=== PATIENT | female | born 1950 | race Caucasian/White ===

== ENCOUNTER 2019-11-27 08:53 | Outpatient (CLI) | payer MEDICARE, SELFPAY ==
--- NOTE | ~2019-11-27 | XR_ITS ---
EXAMINATION: XR sacroiliac joints min 3V INDICATION: Right hip pain TECHNIQUE: AP and bilateral oblique views of the sacroiliac joints are obtained. COMPARISON: None available FINDINGS: There is no abnormal sclerosis or erosion of the sacroiliac joints. No fracture is identifi ed. There is moderate right hip osteoarthritis. IMPRESSION: 1. Unremarkable sacroiliac joints. Reviewed, dictated and finalized at location B.
--- NOTE | ~2019-11-27 | XR_ITS ---
EXAMINATION: XR hip RT min 3V w AP pelvis INDICATION: Right hip pain TECHNIQUE: AP view of the pelvis and three views of the right hip are obtained. COMPARISON: None available FINDINGS: There is moderate right and mild left hip osteoarthritis. Bone alignment is normal. There i s no fracture. Phleboliths are noted in the pelvis. IMPRESSION: 1. Moderate right hip osteoarthritis. Reviewed, dictated and finalized at location B.
[2019-11-27 09:37] LABS: Alanine Aminotransferase 20 U/L (4-35); Albumin Level 4.2 g/dL (3.5-5.1); Alkaline Phosphatase 80 U/L (38-126); Anion Gap 9.4 mmol/L (7-16); Aspartate Amino Transferase 25 U/L (14-36); Bilirubin,Total 0.7 mg/dL (0.2-1.3); Blood Urea Nitrogen 15 mg/dL (7-17); Calcium 9.1 mg/dL (8.4-10.2); Carbon Dioxide 29 mmol/L (22-30); Chloride 101 mmol/L (98-107); Cholesterol 239 mg/dL (0-200); Estimated Glomerular Filt Rate > 60; Glucose 98 mg/dL (65-105); HDL Direct 78 mg/dL; Potassium 4.4 mmol/L (3.4-5.0); Sodium 135 mmol/L (137-145); Triglycerides 156 mg/dL (<150)
[2019-11-27 09:48] LABS: LDL Cholesterol Direct 129 mg/dL
== END 2019-11-27 08:54 | disposition home or self-care (01) ==
PROVIDERS: PCP Family Medicine; Visit Provider Family Medicine
DX: E78.2 Mixed hyperlipidemia (principal); M16.11 Unilateral primary osteoarthritis, right hip
CPT/HCPCS: 36415; 72202; 73502; 80053; 80061

== ENCOUNTER 2020-09-18 09:49 | Outpatient (CLI) | payer MEDICARE, SELFPAY ==
[2020-09-18 11:18] LABS: Basophils Absolute Auto 0.1 K/mm3 (0.0-0.1); Basophils Percent Auto 0.7 % (0.2-1.2); Eosinophils Absolute Auto 0.1 K/mm3 (0-0.3); Eosinophils Percent Auto 1.1 % (0-4.4); Hematocrit 43.4 % (37.0-47.0); Hemoglobin 14.6 g/dL (12.0-15.0); Immature Granulocyte Absolute 0.02 K/mm3 (0.00-0.031); Immature Granulocyte Percent A 0.2 % (0-0.5); Lymphocytes Absolute Auto 2.04 K/mm3 (0.9-3.2); Lymphocytes Percent Auto 24.5 % (18.3-44.2); Mean Corpuscular HGB Conc 33.6 g/dl (32-36); Mean Corpuscular Hemoglobin 33.2 pg (26-34); Mean Corpuscular Volume 98.6 fl (80-100); Mean Platelet Volume 9.7 fl (7.4-10.4); Monocytes Absolute Auto 0.7 K/mm3 (0.1-0.6); Monocytes Percent Auto 8.4 % (2.6-8.5); Neutrophils Absolute Auto 5.4 K/mm3 (1.3-6.7); Neutrophils Percent Auto 65.1 % (45.5-73.1); Platelet Count Result 329 k/mm3 (150-375); Red Cell Distribution Width 12.7 % (11.5-14.5); White Blood Count 8.3 K/mm3 (4.5-10.0)
[2020-09-18 11:32] LABS: Albumin Level 4.4 g/dL (3.5-5.1); Anion Gap 7 mmol/L (8-16); Blood Urea Nitrogen 18 mg/dL (7-17); Calcium 9.5 mg/dL (8.4-10.2); Carbon Dioxide 29 mmol/L (22-30); Chloride 101 mmol/L (98-107); Estimated Glomerular Filt Rate > 60; Glucose 95 mg/dL (65-105); Potassium 4.1 mmol/L (3.4-5.0); Sodium 137 mmol/L (137-145)
[2020-09-18 11:35] LABS: Urine Cotinine NEGATIVE
[2020-09-18 20:26] LABS: Hemoglobin A1C 5.1 % (<5.7)
== END 2020-09-18 09:50 | disposition home or self-care (01) ==
LOC: ANHSURGERY 09:53
PROVIDERS: PCP Family Medicine; Visit Provider Orthopaedic Surgery
DX: Z01.812 Encounter for preprocedural laboratory examination (principal); M16.11 Unilateral primary osteoarthritis, right hip; Z51.81 Encounter for therapeutic drug level monitoring; Z79.899 Other long term (current) drug therapy
CPT/HCPCS: 80048; 80307; 82040; 83036; 85025; 87070

== ENCOUNTER → 2020-10-03 02:44 | Outpatient (CLI) | payer MEDICARE, SELFPAY ==
[2020-10-03 18:16] LABS: SARS-CoV-2 RNA PCR Negative
== END ==
PROVIDERS: PCP Family Medicine; Visit Provider Orthopaedic Surgery
DX: Z01.812 Encounter for preprocedural laboratory examination (principal); Z20.822 Contact with and (suspected) exposure to COVID-19
CPT/HCPCS: C9803; U0003; U0005

== ENCOUNTER 2020-10-06 01:35 | Day surgery (SDC) | payer MEDICARE, SELFPAY ==
[2020-09-18 10:06] VITALS: BP 156/74; PULSE 64; RESP 16; TEMP 37.2; O2SAT 100; BMI 27.6
--- NOTE | 2020-10-01 12:13 | PM.IMHP ---
H&P: HPI History of Present Illness Date/Time: 10/01/20 12:13 70-year-old female patient of Dr. Vela who presents today for a right anterior total hip arthroplasty. Patient has been having progressively worsening symptoms in the right hip. She has moderately severe arthritis in the superior aspect of the hip, she has less than a mm joint space remaining. She has tried anti-inflammatories recently, Mobic, which increased her blood pressure and cause some mild ankle swelling and therefore she has stopped this. She has been having pain on a daily basis. She is using a cane on a more regular basis due to pain in the right hip. Most the pain is over the medial groin and anterior lateral aspect of the hip. Chief Complaint: righthip DJD Review of Systems Review of Systems: All systems reviewed & are unremarkable except as noted in HPI and below PMFSH Past Medical History Medical History Abnormal heart rhythm Age-related osteoporosis without current pathological fracture Arthritis Degenerative joint disease of right hip Dizziness Ex-smoker FH: heart disease H/O: gout Hypertension Pain of right hip Psoriasis Right knee pain Seasonal allergies Skin cancer TIA (transient ischemic attack) Trochanteric bursitis, right hip Vision abnormalities Vitamin D deficiency Family History Family History Mother Patient's mother is Father Patient's father is Other Arthritis Hypertension Social History Social History Smoking packs per day: 1.25 Smoking cigarettes per day: 25.0 Years smoked: 50 Smoking pack-years: 62.50 Smoking status: Former smoker Tobacco type: cigarettes Second hand tobacco smoke exposure: No Smoking end date: 06/26/20 Alcohol intake: current Drinks per week: 18 Substance use: never Additional living arrangements comments: HUSB Spiritual care concerns: No Meds Home Medications and Allergies Home Medications Medication Instructions Recorded Confirmed Type aspirin 81 mg tablet,delayed 81 mg PO DAILY 01/14/20 09/18/20 History release naproxen sodium 220 mg capsule 220 mg PO BID PRN 01/14/20 09/18/20 History metoprolol succinate 25 mg PO HS 09/18/20 09/18/20 History triamcinolone acetonide 1 applic TOPICAL BID PRN 09/18/20 09/18/20 History Allergies Allergy/AdvReac Type Severity Reaction Status Date / Time codeine Allergy Unknown Unknown Verified 09/18/20 10:01 Exam Narrative: Exam Narrative: 70-year-old female alert pleasant. She walks with a cane. And mild limp. She is 5 ft 3 and 156 lb. When she lies supine she has about a 25 degree flexion contracture of the right hip and feels pain in the anterior lateral aspect of the hip which is severe. She is able to flex the hip to 110 with anterior thigh pain. She does not tolerate internal and external rotation of the hip due to severe pain. Stinchfield maneuver causes severe pain anterior thigh. skin is all normal in the groin and anterior lateral hip. She has normal abduction strength in lateral position. Moderate tenderness to palpation of the greater trochanter. 2+ dorsalis pedis and absent posterior tibial artery pulse. Normal sensation in the right lower extremity. Normal strength in all muscle groups of the lower extremity. Resp: Auscultation: clear to auscultation bilaterally Cardio: Rate: regular rate Rhythm: regular rhythm Assessment and Plan Additional Plan 70-year-old female who has moderately severe arthritis in her right hip with rather severe symptoms. Patient is having symptoms on a daily basis which are affecting her daily life. The option of total hip arthroplasty was discussed and patient would like to proceed with that. Surgical procedures well as the risks and complications were discussed
[2020-10-06] VITALS (16 sets, daily range): BP systolic 96–177; BP diastolic 47–73; PULSE 52–69; RESP 10–21; TEMP 35.9–36.5; O2SAT 96–100
--- NOTE | ~2020-10-06 | XR_ITS ---
EXAMINATION: XR hip RT 1V w AP pelvis DATE: 10/06/2020 11:58 INDICATION: Right total hip arthroplasty TECHNIQUE: 2 views right hip FINDINGS: There is a right total hip arthroplasty in expected position. Subcutaneous gas with soft t issue swelling are consistent with recent surgery. There is mild osteoarthritis of the left hip. IMPRESSION: 1. Recent right total hip arthroplasty. Reviewed, dictated and finalized at location B.
--- NOTE | ~2020-10-06 | XR_ITS ---
EXAMINATION: XR surgery orthopedic EXAM DATE: 10/06/2020 11:33 INDICATION: Right hip replacement. TECHNIQUE: Fluoroscopy used during XR surgery orthopedic performed by Dr. Richie Hayes MD. Radi ologist was not present for the imaging or procedure. Total fluoroscopic time of 44 seconds. The DA P for this procedure was 0.2 mGym2. A total of 2 images sent to PACS from the exam. FINDINGS: Frontal image demonstrates right hip arthroplasty hardware in expected position. Correlat e with procedure note. IMPRESSION: Fluoroscopy used during right hip replacement. Reviewed, dictated and finalized at location A.
[2020-10-06] MEDS: ACETAMINOPHEN 500 MG TABLET 1000 MG PO ×3 (06:18→23:52)
[2020-10-06] MEDS: LACTATED RINGERS 1,000 ML 30 ML IV CONT ×2 (06:25→12:01)
--- NOTE | 2020-10-06 07:45 | WPDANESEPPF ---
Anes - Initial Pre Proc Eval Procedure: Operation Date: 10/06/20 07:30 Proposed Procedures p Right Total Hip Arthroplasty Anterior Approach - Richie Hayes MD Date/Time: 10/06/20 07:45 Surgeon: Richie Hayes MD Pre Op Diagnosis: osteoarthritis right hip Patient Data Age: 70 Gender: F Height: 5 ft 4 in Weight: 73 kg Last Vital Signs Temp 99.0 F 09/18/20 10:06 Pulse 64 09/18/20 10:06 Resp 16 09/18/20 10:06 BP 156/74 H 09/18/20 10:06 Pulse Ox 100 09/18/20 10:06 Allergies Allergy/AdvReac Type Severity Reaction Status Date / Time codeine AdvReac Unknown AGITATION/GENERAL Verified 10/06/20 06:05 ITCHING Home Medications Medication Instructions Recorded Confirmed Type aspirin 81 mg tablet,delayed 81 mg PO DAILY 01/14/20 10/06/20 History release metoprolol succinate 25 mg PO HS 09/18/20 10/06/20 History triamcinolone acetonide 1 applic TOPICAL BID PRN 09/18/20 10/06/20 History Patient hx anesthesia problems: none Family hx anesthesia problems: none PMFSH Past Medical History Medical History (Updated 10/06/20 @ 07:47 by Nam Thao MD) Abnormal heart rhythm h/o ST; takes Metoprolol Age-related osteoporosis without current pathological fracture Arthritis Degenerative joint disease of right hip Dizziness Ex-smoker FH: heart disease H/O: gout Hypertension Pain of right hip Psoriasis Right knee pain Seasonal allergies Skin cancer TIA (transient ischemic attack) had left sided numbness, last a short period; 3 years ago; none since then; Trochanteric bursitis, right hip Vision abnormalities Vitamin D deficiency Family History Family History Mother Patient's mother is Father Patient's father is Other Arthritis Hypertension Social History Social History Smoking packs per day: 1.25 Smoking cigarettes per day: 25.0 Years smoked: 50 Smoking pack-years: 62.50 Smoking status: Former smoker Tobacco type: cigarettes Second hand tobacco smoke exposure: No Alcohol intake: current Drinks per week: 18 Substance use: never Living arrangements: with family Additional living arrangements comments: HUSB Spiritual care concerns: No Anes - Eval Final PreProcedure Day of Procedure 10/06/20 07:45 Patient weight: overweight Heart: regular rate and rhythm Lungs: clear to auscultation Airway: Mallampati scale class III Neurological: alert and oriented Last oral intake: >/= 8 hours ASA classification: III Emergent: no Anesthetic plan: proceed Anesthesia type and monitoring: general ETT and standard monitoring Informed Consent: The patient's anesthetic plan and its attendant risks and benefits were discussed with the patient/family/POA. Questions were solicited and answers provided to the satisfaction of the patient/family/POA.
--- NOTE | 2020-10-06 07:57 | SUR.PREOP ---
0710-PT INFORMED BY JHON BRADSHAW RN OF DELAY, POSSIBLE CANCELLATION R/T EQUIPMENT ISSUE. 0745-PT AWARE SURGERY WILL PROCEED IN APPROXIMATELY 30-45 MINUTES.
--- NOTE | 2020-10-06 08:01 | WPDHPUPDATE1 ---
History and Physical Update Update Date/Time: 10/06/20 08:01 History and Physical has been reviewed, including an updated exam of the patient. There are NO changes in the patient's condition. Risks, benefits, and alternatives have been discussed and questions answered. Patient agrees to proceed with procedure.
[2020-10-06] MEDS: ceFAZolin 2 GM/D5W 50 ML 2 GM/50 ML BAG IVPB (08:31)
[2020-10-06] MEDS: ceFAZolin SODIUM 1 GM VIAL 3 GM IRRIGATION (09:43)
[2020-10-06] MEDS: ceFAZolin SODIUM 1 GM VIAL IV PUSH (11:22)
[2020-10-06] MEDS: TRANEXAMIC ACID 1,000 MG/10 ML AMPUL 1000 MG IV PUSH (11:24)
[2020-10-06] MEDS: KETOROLAC 15 MG/ML VIAL (*BKC) IV PUSH (11:29)
--- NOTE | 2020-10-06 11:49 | W.PM.PROC2 ---
Procedure Note - Detailed Date of Procedure 10/06/20 Pre-op Diagnosis osteoarthritis right hip Post-op Diagnosis same Procedure Performed Direct anterior approach right hip arthroplasty Surgeon Richie Hayes MD [facility] Anesthesia general Description of Procedure Patient was brought to the operating room and general anesthesia was administered. She was transferred to the OSI table. We had a little bit of a delay switching out the anesthesia machine for the machine with a perfectly function ventilator component. The feet were padded placed in the boots. Right hip prepped draped usual fashion. She received 2 g of Ancef weight based vancomycin and 1 g of tranexamic acid preoperatively. A 10 cm longitudinal incision was made starting 3 cm lateral to the ASIS. Dissection was carried down to the surface of the fascia covering the tensor fascia aron which was longitudinally incised elevated off the anterior 1/2 of the TFL muscle. The interval between rectus femoris and TFL was developed. Crossing branches of ascending branches of lateral femoral circumflex vessels were ligated with suture and divided. Ileal capsular is elevated off anterior capsule and the hip abducted internally rotated and the gluteus minimus elevated off the lateral capsule. Capsule was incised in the usual fashion. Femoral neck osteotomy was made and head removed without difficulty. It measured 46 mm in diameter. There is arthritic. Acetabulum was exposed labrum excised. The femur was externally rotated extended and the lateral tongue of lateral capsular flap excised. Interval between piriformis tendon and conjoined tendon was vertically incised which allowed the conjoined tendon to partially recess which gave enough mobility for anterior is a ramon in this position. With the leg back to the horizontal position external rotation and traction acetabulum was exposed. We medialized with a 44 Reamer. With the 47 Reamer there is still a periphery of on reamed rim the 48 Reamer smoothed the prominence on the rim. As her cancellous bone was a little bit soft we medialized a little further with the 47 Reamer to the floor of the fovea. We then impacted the 48 pinnacle acetabular shell at 40? of abduction anteversion such that the anterior shell was just under the anterior wall and posterior shell about 4 mm prominent posterior superiorly. Excellent it was achieved. We could see that we are about a mm up centrally but the impaction was quite solid and no further impaction could be achieved. A single screw was placed into the ilium which achieved excellent purchase as well. The 32 inner diameter liner was fully seated without difficulty. Inferior acetabular osteophyte was excised. The femur was externally rotated and extended and we had excellent access to proximal femur. We broached up to a size 3 which started getting very tight. It had no torsional wiggle. We countersunk the broach further to what we thought was the appropriate height and trialed. With the standard neck and +5 head, the hip was just a little bit tight. The broach was countersunk another 2 mm and calcar planed and we trialed with the +5 and this gave us the appropriate soft tissue tension with excellent stability but adequate Shuck. Intraoperative x-rays showed that we had matched our preoperative templating plan. Leg lengths looked equal. The size 3 standard neck Actis stem was fully seated without difficulty with an excellent press fit. It sat on the collar nicely. The +5 x 32 ceramic head was impacted onto the clean and dried trunnion. The wound was thoroughly irrigated again with antibiotic solution and the hip reduced stability reconfirmed and. Anterior capsular flap was allowed to rest anterior in situ. The fascia over the tensor fascia aron was closed with running number 1 Vicryl suture. Drain placed deep to the subcutaneous layer skin closed to subcu take any is Vicryl in glue EBL 200 cc. There was
[2020-10-06] MEDS: fentaNYL CITRATE INJ (*CRX) 100 MCG/2 ML VIAL 25 MCG IV PUSH ×4 (12:23→13:00)
--- NOTE | 2020-10-06 12:45 | SUR.PHASEI ---
O2 removed at 1245.
--- NOTE | 2020-10-06 13:50 | PC.NURSE ---
Returned from OR per bed. Report received from CHRISTIANA Dias.
[2020-10-06 14:35] LABS: Hematocrit 38.8 % (37.0-47.0); Hemoglobin 12.9 g/dL (12.0-15.0)
[2020-10-06] MEDS: oxyCODONE HCL (*CRX) 2.5 MG TAB IR PO ×3 (14:48→23:03)
--- NOTE | 2020-10-06 15:19 | PCPTNOTE ---
Attempted PT x 2. Pt refused due to being to tired and having pain. Will try again tomorrow.
[2020-10-06] MEDS: ONDANSETRON INJ 4 MG/2 ML VIAL IV PUSH (15:52)
[2020-10-06] MEDS: DEXTROSE 5%/0.9% SOD CHL 1,000 ML 125 ML IV CONT (16:42)
[2020-10-06] MEDS: SENNA/DOCUSATE SODIUM TABLET 2 TAB PO (16:47)
[2020-10-06] MEDS: FAMOTIDINE 20 MG TABLET PO (20:39)
[2020-10-06] MEDS: METOPROLOL SUCCINATE EXT REL 25 MG TABCR PO (20:39)
[2020-10-07] MEDS: oxyCODONE HCL (*CRX) 2.5 MG TAB IR PO ×3 (03:05→10:34)
[2020-10-07 03:29] VITALS: BP 109/77; PULSE 63; RESP 21; TEMP 36.1; O2SAT 100
[2020-10-07] MEDS: DEXTROSE 5%/0.9% SOD CHL 1,000 ML 125 ML IV CONT (04:33)
[2020-10-07 05:38] LABS: Basophils Percent Auto 0.2 % (0.2-1.2); Hematocrit 34.1 % (37.0-47.0); Hemoglobin 11.1 g/dL (12.0-15.0); Immature Granulocyte Absolute 0.05 K/mm3 (0.00-0.031); Immature Granulocyte Percent A 0.4 % (0-0.5); Lymphocytes Absolute Auto 0.85 K/mm3 (0.9-3.2); Mean Corpuscular HGB Conc 32.6 g/dl (32-36); Mean Corpuscular Hemoglobin 33.3 pg (26-34); Mean Corpuscular Volume 102.4 fl (80-100); Mean Platelet Volume 10.1 fl (7.4-10.4); Monocytes Absolute Auto 1.2 K/mm3 (0.1-0.6); Neutrophils Absolute Auto 9.9 K/mm3 (1.3-6.7); Neutrophils Percent Auto 82.4 % (45.5-73.1); Platelet Count Result 239 k/mm3 (150-375); Red Blood Count 3.33 M/mm3 (4.2-5.4); White Blood Count 12.1 K/mm3 (4.5-10.0)
[2020-10-07 05:47] LABS: Anion Gap 6 mmol/L (8-16); Blood Urea Nitrogen 15 mg/dL (7-17); Calcium 7.8 mg/dL (8.4-10.2); Carbon Dioxide 25 mmol/L (22-30); Chloride 104 mmol/L (98-107); Estimated CRCL calculation 54 ml/min; Estimated Glomerular Filt Rate > 60; Glucose 148 mg/dL (65-105); Potassium 4.1 mmol/L (3.4-5.0); Sodium 135 mmol/L (137-145)
--- NOTE | 2020-10-07 06:18 | PM.PNORT ---
Progress Note: A&P Additional Plan POD 1 alert avss . labs-noted. drain is out, pt having nausea yesterday and unable to do PT, only having nausea when standing-none while in bed, pt has had IV fluids running all night due to low PO intake, seems to be tolerating pain meds, nausea may just be post-anesthesia , pt will work with PT today,if nausea is better plan to send home this afternoon Subjective Subjective Date/Time Seen: 10/07/20 06:18 Objective Data Vital Signs Vital Signs: Vital Signs - 24 hr 10/06/20 12:01 10/06/20 12:15 10/06/20 12:30 Temperature 36.3 C L Pulse Rate 69 65 56 L Respiratory Rate 12 14 12 Blood Pressure 96/47 L 145/67 H 115/51 L Pulse Oximetry 100 100 100 10/06/20 12:45 10/06/20 13:00 10/06/20 13:15 Temperature Pulse Rate 65 52 L 67 Respiratory Rate 18 12 15 Blood Pressure 131/63 136/63 140/66 Pulse Oximetry 100 96 100 10/06/20 13:30 10/06/20 13:55 10/06/20 14:00 Temperature 35.9 C L Pulse Rate 64 64 Respiratory Rate 10 L 14 Blood Pressure 134/68 150/59 H Pulse Oximetry 100 100 100 10/06/20 14:10 10/06/20 14:40 10/06/20 15:40 Temperature 36.1 C L 36.1 C L 36.1 C L Pulse Rate 59 L 63 62 Respiratory Rate 14 14 16 Blood Pressure 143/62 H 135/61 130/57 L Pulse Oximetry 100 99 96 10/06/20 20:39 10/06/20 22:17 10/06/20 23:29 Temperature 36.5 C Pulse Rate 61 61 Respiratory Rate 21 H Blood Pressure 127/57 L Pulse Oximetry 96 100 10/07/20 03:29 Temperature 36.1 C L Pulse Rate 63 Respiratory Rate 21 H Blood Pressure 109/77 Pulse Oximetry 100 Intake/Output Intake/Output: Intake & Output 10/04/20 10/05/20 10/06/20 10/07/20 23:59 23:59 23:59 23:59 Intake Total 1150 1050 Balance 1150 1050 Meds/Results Medications: Active Medications Generic Name Dose Route Start Last Admin Trade Name Freq PRN Reason Stop Dose Admin Acetaminophen 1,000 mg 10/06/20 18:00 10/06/20 23:52 Acetaminophen 500 Mg Tablet PO 1,000 mg Q6HR BRIONNA Administration Al Hydrox/Mg Hydrox/Simethicone 30 ml 10/06/20 13:44 Mag Hydrox/Al Hydrox/Simeth 30 Ml Udc PO Q6H PRN Indigestion Apixaban 2.5 mg 10/07/20 09:00 Apixaban 2.5 Mg Tablet PO 11/10/20 21:01 Q12HR BRIONNA Celecoxib 100 mg 10/07/20 09:00 Celecoxib 100 Mg Capsule PO DAILY BRIONNA Famotidine 20 mg 10/06/20 21:00 10/06/20 20:39 Famotidine 20 Mg Tablet PO 20 mg Q12HR BRIONNA Administration Hydroxyzine HCl 50 mg 10/06/20 13:44 Hydroxyzine Hcl 25 Mg Tablet PO Q4H PRN Itching Vancomycin HCl 1,000 mg in 250 mls @ 250 mls/hr 10/06/20 18:30 10/06/20 19:25 Vancomycin 1,000 Mg/D5w 250 Ml IVPB 10/07/20 07:29 Infused Q12H BRIONNA Infusion Cefazolin Sodium 1 gm in 50 mls @ 100 mls/hr 10/06/20 16:00 10/07/20 00:22 Ancef 1 Gm/D5w 50 Ml Pm IVPB 10/07/20 08:29 Infused Q8H BRIONNA Infusion Dextrose/Sodium Chloride 1,000 mls @ 125 mls/hr 10/06/20 16:20 10/07/20 04:33 Dextrose 5% Sodium Chloride 0.9% IV CONT 125 mls/hr .Q8H BRIONNA Administration Magnesium Hydroxide 30 ml 10/06/20 13:44 Magnesium Hydroxide Susp 30 Ml Udc PO BID PRN Constipation Metoprolol Succinate 25 mg 10/06/20 21:00 10/06/20 20:39 Metoprolol Succinate Ext Rel 25 Mg Tabcr PO 25 mg HS BRIONNA Administration Morphine Sulfate 2 mg 10/06/20 13:44 Morphine Sulfate (*Crx) 2 Mg/Ml Inj IV PUSH Q4H PRN Pain Rated 7-10 Naloxone HCl 0.1 mg 10/06/20 13:44 Naloxone Hcl 0.4 Mg/Ml Vial IV PUSH Q2M PRN Opiate Reversal Ondansetron HCl 4 mg 10/06/20 13:44 10/06/20 15:52 Ondansetron Inj 4 Mg/2 Ml Vial IV PUSH 4 mg Q4H PRN Administration Nausea And Vomiting Oxycodone HCl 2.5 mg 10/06/20 13:44 Oxycodone Hcl (*Crx) 2.5 Mg Tab Ir PO Q4H PRN Moderate Pain (4-6) Oxycodone HCl 2.5 mg 10/06/20 19:00 10/07/20 03:05 Oxycodone Hcl (*Crx) 2.5 Mg Tab Ir PO 2.5 mg Q4H BRIONNA Administration Polyethylene Gly
--- NOTE | 2020-10-07 06:25 | PM.DS ---
DS: Admitting Diagnosis Admitting Diagnosis Admitting Diagnosis: right hip DJD DS: Summary Hospital Course Hospital Course: stable Time Spent with Patient Time attestation: Total time spent providing and/or coordinating discharge services: 70-year-old female who underwent right anterior total hip arthroplasty on 10/06/2020. Underwent the procedure without any complications. Postoperatively she has been afebrile vital Signs was stable neurovascular intact wound is dry. She is weight-bearing as tolerated. She was having nausea on the day of surgery and was unable to work with therapy at that time. On the morning of postop day 1 patient was having nausea but only if she was upright. While she was in bed was having no nausea at all. Hopefully this is just postanesthesia nausea. She does tolerate pain medicine, she is on 2.5 mg oxycodone as well as 100 mg of Celebrex daily as well as schedule Tylenol which she seems to be tolerating. Overall her pain is mild. Patient had IV fluids running through the day of surgery into the morning of postop day 1 because she was having decreased p.o. intake. She is encouraged this morning to have better p.o. intake. She had a very minimal amount of food last night for dinner hopefully that will improve with breakfast on postop day 1. The the patient work with therapy on postop day 1 if she does well and is comfortable plan on discharging her home later today on 10/07. Patient was advised deeply elevated to decrease swelling in the right leg. To advise any questions or concerns she is to call the office otherwise will see her at her appointment date. DS: Data Data Completed and Pending Labs on day of discharge: Labs from last 24 hours 10/07/20 10/07/20 10/06/20 04:57 04:57 14:08 WBC 12.1 H RBC 3.33 L Hgb 11.1 L 12.9 Hct 34.1 L 38.8 MCV 102.4 H MCH 33.3 MCHC 32.6 RDW 13.0 Plt Count 239 MPV 10.1 Immature Gran % (Auto) 0.4 Neut % (Auto) 82.4 H Lymph % (Auto) 7.0 L Weakley % (Auto) 10.0 H Eos % (Auto) 0.0 Baso % (Auto) 0.2 Lymph # (Auto) 0.85 L Weakley # (Auto) 1.2 H Eos # (Auto) 0.0 Baso # (Auto) 0.0 Abs Immat Gran (auto) 0.05 H Absolute Neuts (auto) 9.9 H Absolute Nucleated RBC 0.0 Nucleated RBC % 0.0 Sodium 135 L Potassium 4.1 Chloride 104 Carbon Dioxide 25 Anion Gap 6 L BUN 15 Creatinine 0.80 Estim Creat Clear Calc 54 Estimated GFR > 60 Glucose 148 H Calcium 7.8 L Blood Type Antibody Screen 10/06/20 06:21 WBC RBC Hgb Hct MCV MCH MCHC RDW Plt Count MPV Immature Gran % (Auto) Neut % (Auto) Lymph % (Auto) Weakley % (Auto) Eos % (Auto) Baso % (Auto) Lymph # (Auto) Weakley # (Auto) Eos # (Auto) Baso # (Auto) Abs Immat Gran (auto) Absolute Neuts (auto) Absolute Nucleated RBC Nucleated RBC % Sodium Potassium Chloride Carbon Dioxide Anion Gap BUN Creatinine Estim Creat Clear Calc Estimated GFR Glucose Calcium Blood Type O Negative Antibody Screen Negative Discharge Plan Discharge Patient Disposition: Home, Self-Care Discharge Instructions: [facility] [address] [place] [id number] POST-OPERATIVE DISCHARGE INSTRUCTIONS ANTERIOR TOTAL HIP ARTHROPLASTY 1. Move toes/feet up and down every hour while awake. 2. Be up walking every hour while awake. 3. Use cane in hand opposite of side of hip surgery or walker as comfort allows. Avoid sitting in a chair unless eating, receiving visitors or using the toilet. 4. When resting, lie on back with leg elevated above heart to minimize swelling. Significant swelling could indicate a blood clot and if this occurs, call the office (or go to the ER) to have a venous ultrasound performed. 5. Wound Care: Keep dry sponge on wound for 2 weeks. Use minimal tape. 6. Follow weight binh
[2020-10-07] MEDS: ACETAMINOPHEN 500 MG TABLET 1000 MG PO ×2 (06:32→11:47)
[2020-10-07] MEDS: ONDANSETRON INJ 4 MG/2 ML VIAL IV PUSH (06:33)
[2020-10-07 07:29] VITALS: BP 101/58; PULSE 68; RESP 21; TEMP 36.6; O2SAT 100
[2020-10-07] MEDS: CELECOXIB 100 MG CAPSULE PO (09:14)
[2020-10-07] MEDS: SENNA/DOCUSATE SODIUM TABLET 2 TAB PO (09:14)
[2020-10-07] MEDS: FAMOTIDINE 20 MG TABLET PO (09:14)
[2020-10-07] MEDS: polyethylene glycoL 3350 17 GM POWD.PACK PO (09:14)
[2020-10-07] MEDS: APIXABAN 2.5 MG TABLET PO (09:14)
[2020-10-07] MEDS: MAG HYDROX/AL HYDROX/SIMETH 30 ML UDC PO (09:14)
[2020-10-07 10:00] VITALS: BP 110/50; PULSE 60; RESP 14; TEMP 36.5; O2SAT 100
--- NOTE | 2020-10-07 11:10 | WPDCN ---
Assessment and Plan Assessment and plan (1) Chronic pruritic rash in adult: Code(s): L29.8 - Other pruritus Status: Acute Assessment and Plan: Will add antifungal medication as there appears to be a fungal component -pt prescribed triamcinolone by pcp and it is improving with that -discussed hygiene and the importance of keeping it dry. -follow up with pcp after discharge (2) History of total right hip arthroplasty: Code(s): Z96.641 - Presence of right artificial hip joint Status: Acute Assessment and Plan: POD day 1 of right hip arthroplasty -no complications at this time -continue ortho recommendations -pt being prescribed eliquis at d/c for dvt prophylaxis. Would caution use with celecoxib especially with her ETOH use and would monitor for bleeding -antiplatelet (asa 81mg daily) being held, would recommend this be restarted SOON as ortho is okay with it since she has a hx of TIA (3) History of tachycardia: Code(s): Z87.898 - Personal history of other specified conditions Status: Acute Assessment and Plan: Controlled with metoprolol (4) Alcohol use: Code(s): Z72.89 - Other problems related to lifestyle Status: Acute Assessment and Plan: pt drinks 2 glasses of wine a day -no signs of withdraw Additional Plan Supervising physician for this consult is Dr. Car. Due to the chronicity of the rash, will sign off the case. If you have any questions regarding her medical care, please feel free to reach out. HPI Data of Consult Date/Time: 10/07/20 11:10 Requesting Physician: Richie Hayes MD Primary Care Provider: Rashmi Vela MD Consult Narrative Narrative: Kayley Jaimes is a 70 year old female who recently had a right hip arthroplasty whom we are being consulted for a chronic gluteal cleft rash. Patient was seen today and had no complaints of the rash. She states that this is chronic and she has been seeing Dr. vela for this. She actually thinks it has gotten better since it started a few weeks ago. She states she has been using triamcinolone which she has used in the past for a similar rash and she thinks it has been improving. She also has complaints of nausea. She threw up her dinner and threw up her breakfast again today. She has no real abdominal pain, just nausea with vomiting. She believes the nausea medication is helping her, however, she is still throwing up. She has not kept anything down since her surgery. She has no diarrhea and has not had a bowel movement today but did have a BM yesterday prior to surgery. She also has mild complaints of a sore throat since surgery. She denies chest pain, shortness of breath or abdominal pain. She states she underwent the right hip arthroplasty due to pain with walking. She was walking with a limp and a cane prior to surgery. She had tried 1 steroid injection which lasted about 2 months and then she continued to have pain. She states she is feeling okay today. When she lies flat and does not move her pain is a 3/10. When she works with therapy it is about an 8/10. She says the pain medications do help. She denies numbness or tingling to the area. Review of Systems Review of Systems: All systems reviewed & are unremarkable except as noted in HPI and below PMFSH Past Medical History Medical History Abnormal heart rhythm h/o ST; takes Metoprolol Age-related osteoporosis without current pathological fracture Arthritis Degenerative joint disease of right hip Dizziness Ex-smoker FH: heart disease H/O: gout Hypertension Pain of right hip Psoriasis Right knee pain Seasonal allergies Skin cancer TIA (transient ischemic attack) had left sided numbness, last a short period; 3 years ago; none since then; Trochanteric bursitis, right hip Vision abnormalities Vitamin D deficiency Family History Fami
--- NOTE | 2020-10-07 12:21 | P.PNAN_ITS ---
Anes - Prog Note Post-Op Date/Time: 10/07/20 12:21 Cardiovascular status: normal Respiratory status: normal Airway patency: baseline Mental status: baseline Vital Signs: Last Vital Signs Temp 36.5 C 10/07/20 10:00 Pulse 60 10/07/20 10:00 Resp 14 10/07/20 10:00 BP 110/50 L 10/07/20 10:00 Pulse Ox 100 10/07/20 10:00 Pain Score (VAS): 0/10. Patient resting in bed at time of assessment, appears comfortable. Mild nausea with relief with prn meds. I/O: Intake & Output 10/06/20 10/07/20 10/07/20 23:59 07:59 15:59 Intake Total 350 1600 570 Output Total 45 250 Balance 350 1555 320 Laboratory Tests 10/07/20 04:57 10/07/20 04:57 10/06/20 10/07/20 10/07/20 14:08 04:57 04:57 WBC 12.1 H RBC 3.33 L Hgb 12.9 11.1 L Hct 38.8 34.1 L MCV 102.4 H MCH 33.3 MCHC 32.6 RDW 13.0 Plt Count 239 MPV 10.1 Immature Gran % (Auto) 0.4 Neut % (Auto) 82.4 H Lymph % (Auto) 7.0 L [place] % (Auto) 10.0 H Eos % (Auto) 0.0 Baso % (Auto) 0.2 Lymph # (Auto) 0.85 L [place] # (Auto) 1.2 H Eos # (Auto) 0.0 Baso # (Auto) 0.0 Abs Immat Gran (auto) 0.05 H Absolute Neuts (auto) 9.9 H Absolute Nucleated RBC 0.0 Nucleated RBC % 0.0 Sodium 135 L Potassium 4.1 Chloride 104 Carbon Dioxide 25 Anion Gap 6 L BUN 15 Creatinine 0.80 Estim Creat Clear Calc 54 Estimated GFR > 60 Glucose 148 H Calcium 7.8 L Post-procedural complaints: nausea (relief with prn meds. ) Patient Feedback: Patient satisfied with anesthetic care.
[2020-10-07 14:00] VITALS: BP 119/55; PULSE 62; RESP 16; TEMP 36.8; O2SAT 100
== END 2020-10-07 15:08 | disposition home or self-care (01) ==
LOC: ANHSURGERY 05:54 → ANH2MED 13:55
PROVIDERS: Physician Assistant Surgical; PCP Family Medicine; Visit Provider Orthopaedic Surgery
PROC: (CPT 27130; principal; 2020-10-06 07:30)
DX: M16.11 Unilateral primary osteoarthritis, right hip (principal); M81.0 Age-related osteoporosis without current pathological fracture; I11.9 Hypertensive heart disease without heart failure; L40.9 Psoriasis, unspecified; E55.9 Vitamin D deficiency, unspecified; Z86.73 Personal history of transient ischemic attack (TIA), and cerebral infarction without residual deficits; Z79.82 Long term (current) use of aspirin; Z87.891 Personal history of nicotine dependence
CPT/HCPCS: 27130; 36415; 73501; 80048; 80307; 82040; 83036; 85014; 85018; 85025; 86850; 86900; 86901; 87070; 97110; 97116; 97161; 97165; 97530; A9270; C1776; C9803; J0171; J0330; J0690; J1100; J1170; J1885; J2250; J2405; J2704; J2710; J2795; J3010; J3370; J7042; J7120; U0003; U0005

== ENCOUNTER 2021-10-21 07:48 | Outpatient (CLI) | payer MEDICARE, SELFPAY ==
--- NOTE | ~2021-10-21 | MM_ITS ---
EXAMINATION: MM screening [facility] BI w amie HISTORY: Screening mammogram TECHNIQUE: Craniocaudal and mediolateral oblique 3-D tomosynthesis images were obtained and synthetic 2-D images were generated. CAD analysis was submitted and interpreted. COMPARISON: 09/18/2016, 01/30/2014 bilateral screening mammogram examinations BREAST PARENCHYMAL COMPOSITION: There are scattered areas of fibroglandular density. FINDINGS: Right breast: There is no evidence of suspicious mass, calcification, or architectural dist ortion to suggest malignancy in either breast. There has been no suspicious interval change. Left breast: There is an asymmetric spiculated density with numerous suspicious grouped microcalcific ations in the mid to upper outer left breast 4 cm from the nipple. Diagnostic mammogram with magnific ation views and left breast ultrasound examination are recommended. IMPRESSION: 1. Numerous grouped suspicious microcalcifications at a spiculated mass in the mid to upper outer lef t breast 2. Diagnostic left mammogram with magnification views and left breast ultrasound examination are steffany mmended BI-RADS Category 0: Incomplete: Needs additional imaging evaluation. Reviewed, dictated and finalized at location A. IMPRESSION: 1. Numerous grouped suspicious microcalcifications at a spiculated mass in the mid to upper outer left breast 2. Diagnostic left mammogram with magnification views and left breast ultrasoun d examination are recommended BI-RADS Category 0: Incomplete: Needs additional imaging evaluation.
== END 2021-10-21 07:49 | disposition home or self-care (01) ==
PROVIDERS: PCP Family Medicine; Visit Provider Family Medicine
DX: Z12.31 Encounter for screening mammogram for malignant neoplasm of breast (principal); R92.8 Other abnormal and inconclusive findings on diagnostic imaging of breast
CPT/HCPCS: 77063; 77067

== ENCOUNTER 2021-11-19 12:53 | Outpatient (CLI) | payer MEDICARE, SELFPAY ==
--- NOTE | ~2021-11-19 | MMUS_ITS ---
EXAMINATION: MM diagnostic mammo unilat LT, US breast LT limited HISTORY: Follow-up left breast mass and calcifications TECHNIQUE: Additional 3-D tomosynthesis images of the left breast were performed and synthetic 2-D im ages were generated. CAD analysis was submitted and interpreted. High resolution Limited left breast ultrasound was performed. COMPARISON: Comparison to multiple prior studies sequentially, with oldest reviewed study dated 06/2012. BREAST PARENCHYMAL COMPOSITION: Breast composed of scattered areas of fibroglandular density FINDINGS: MAMMOGRAPHIC FINDINGS: There is a spiculated mass with associated pleomorphic calcifications in the upper outer quadrant of the left breast. ULTRASOUND: Limited left breast ultrasound: At 2:00, 3 cm from the nipple there is an irregular shaped hypoechoic mass which is antiparallel, posterior shadowing and internal vascularity measuring 10 x 7 x 6 mm cor responding to the mass seen on mammography. IMPRESSION: 1. Irregular shaped 1 cm mass at 2:00, 3 cm from the nipple. 2. Stereotactic left breast biopsy recommended. BI-RADS category 5, highly suggestive of malignancy. Reviewed, dictated and finalized at location A. IMPRESSION: 1. Irregular shaped 1 cm mass at 2:00, 3 cm from the nipple. 2. Stereotactic left breast biopsy recommended. BI-RADS category 5, highly suggestive of malignancy.
== END 2021-11-19 12:54 | disposition home or self-care (01) ==
PROVIDERS: PCP Family Medicine; Visit Provider Physician Assistant
DX: R92.8 Other abnormal and inconclusive findings on diagnostic imaging of breast (principal)
CPT/HCPCS: 76642; 77065

== ENCOUNTER 2021-12-21 11:14 | Outpatient (CLI) | payer MEDICARE, SELFPAY ==
--- NOTE | 2021-12-21 11:26 | ECG_ITS ---
Measurements Intervals [place] Rate: 57 P: 70 OR: 156 QRS: 28 QRSD: 88 T: 43 QT: 404 QTc: 395 Interpretive Statements SINUS BRADYCARDIA BORDERLINE ECG NO PREVIOUS ECG AVAILABLE FOR COMPARISON Electronically Signed On 12-21-2021 16:34:42 CDT by Mani Barnett M.D.
== END 2021-12-21 11:15 | disposition home or self-care (01) ==
PROVIDERS: PCP Family Medicine; Visit Provider Family Medicine
DX: I10 Essential (primary) hypertension (principal); Z01.818 Encounter for other preprocedural examination; R94.31 Abnormal electrocardiogram [ECG] [EKG]
CPT/HCPCS: 93005

== ENCOUNTER 2022-05-10 10:24 | Outpatient (CLI) | payer MEDICARE, SELFPAY ==
[2022-05-10 10:52] LABS: Alanine Aminotransferase 22 U/L (6-35); Albumin Level 4.4 g/dL (3.5-5.1); Alkaline Phosphatase 76 U/L (38-126); Anion Gap 6 mmol/L (8-16); Aspartate Amino Transferase 25 U/L (14-36); Bilirubin,Total 0.6 mg/dL (0.2-1.3); Blood Urea Nitrogen 17 mg/dL (7-17); Carbon Dioxide 32 mmol/L (22-30); Chloride 100 mmol/L (98-107); Cholesterol 271 mg/dL (0-200); Estimated Glomerular Filt Rate > 60; Glucose 100 mg/dL (65-110); HDL Direct 78 mg/dL; Potassium 4.7 mmol/L (3.4-5.0); Sodium 138 mmol/L (137-145); Triglycerides 193 mg/dL (<150)
[2022-05-10 10:54] LABS: Hematocrit 42.3 % (37.0-47.0); Hemoglobin 14.2 g/dL (12.0-15.0); Mean Corpuscular HGB Conc 33.6 g/dl (32-36); Mean Corpuscular Volume 98.4 fl (80-100); Mean Platelet Volume 9.5 fl (7.4-10.4); Platelet Count Result 305 k/mm3 (150-375); Red Cell Distribution Width 12.1 % (11.5-14.5); White Blood Count 6.5 K/mm3 (4.5-10.0)
[2022-05-10 11:03] LABS: LDL Cholesterol Direct 129 mg/dL
[2022-05-10 11:29] LABS: Vitamin D 25 Hydroxy 35.7 ng/mL
== END 2022-05-10 10:25 | disposition home or self-care (01) ==
PROVIDERS: PCP Family Medicine; Visit Provider Family Medicine
DX: E78.2 Mixed hyperlipidemia (principal); D64.9 Anemia, unspecified; E55.9 Vitamin D deficiency, unspecified; I10 Essential (primary) hypertension
CPT/HCPCS: 36415; 80053; 80061; 82306; 85027

== ENCOUNTER 2022-07-22 09:31 | Outpatient (CLI) | payer MEDICARE, SELFPAY ==
--- NOTE | ~2022-07-22 | DEXA_ITS ---
Bone Density Report Name: FAITH LEMUS Age: 71 Sex: Female Ethnicity: White Date of : 1950 Indication: osteopenia; height loss; cancer; postmenopausal Referring Provider: HOSEA, TRICIA [place] Study: Bone densitometry was performed. Exam Date: July 22, 2022 Accession number: [id number] Bone Density: Region BMD T-score Z-score Classification AP Spine(L1-L4) 0.809 -2.2 0.2 Osteopenia Femoral Neck (Left) 0.654 -1.8 0.3 Osteopenia Total Hip (Left) 0.812 -1.1 0.7 Osteopenia World Health Organization criteria for BMD impression classify patients as: Normal (T-score at or above -1.0), Osteopenia (T-score between -1.0 and -2.5), or Osteoporosis (T-score at or below -2.5). 10-year Fracture Risk(1): Major Osteoporotic Fracture 12% Hip Fracture 2.4% Reported Risk Factors: [place] (), Neck BMD=0.654, BMI=27.8 (1) FRAX(R) Version 3.08. Fracture probability calculated for an untreated patient. Fracture probability may be lower if the patient has received treatment. Previous Exams: Region Exam Age BMD T-score BMD Change BMD Change Date g/cm2 vs Baseline vs Previous AP Spine (L1-L4) 07/22/2022 71 0.809 -2.2 0.007 (0.9%)# 0.004 (0.5%) 09/01/2016 66 0.804 -2.2 0.002 (0.3%)# 0.002 (0.3%)# 01/24/2013 62 0.802 -2.2 Total Hip(Left) 07/22/2022 71 0.812 -1.1 0.023 (2.9%)# -0.019 (-2.3%) 09/01/2016 66 0.832 -0.9 0.042 (5.3%)# 0.042 (5.3%)# 01/24/2013 62 0.789 -1.3 *Denotes significance at 95% confidence level, LSC for AP Spine = 0.022 g/cm2, LSC for Total Hip = 0.027 g/cm2 # Denotes dissimilar scan types or analysis methods Clinical Information Provided by Patient: Has used the following medications: Vitamin D Has the following medical conditions: Cancer Patient maximum height was 65.5 Menopause Age: 42 Drinks caffeinated beverages Onset of menses at age 7 Number of children 2 Impression: The patient has low bone mass, based on the Total Spine T-score. The patient has an estimated ten-year risk of hip fracture of 2.4% and an estimated ten-year risk of major fracture of 12%, based on the WHO FRAX algorithm. No significant bone loss was observed. Discussion: BONE DENSITY IS LOW AT ONE OR MORE SKELETAL SITES. This patient's lowest T-score is low at one or more skeletal sites. It meets the World Health Organization's (WHO) criteria for ?low bone mass? (T-score between -1.0 and -2.5). The patient's 10-year risk of fracture as calculated by FRAX is less than the threshold where p
== END 2022-07-22 09:32 | disposition home or self-care (01) ==
LOC: ANHIMG 09:33
PROVIDERS: PCP Family Medicine; Visit Provider Internal Medicine Medical Oncology
DX: Z13.820 Encounter for screening for osteoporosis (principal); Z79.811 Long term (current) use of aromatase inhibitors; M85.89 Other specified disorders of bone density and structure, multiple sites
CPT/HCPCS: 77080

== ENCOUNTER 2023-01-28 10:09 | Outpatient (CLI) | payer MEDICARE, SELFPAY ==
[2023-01-28 11:04] LABS: Basophils Absolute Auto 0.1 K/mm3 (0.0-0.1); Basophils Percent Auto 0.9 % (0.2-1.2); Eosinophils Absolute Auto 0.2 K/mm3 (0-0.3); Eosinophils Percent Auto 2.2 % (0-4.4); Hematocrit 39.2 % (37.0-47.0); Hemoglobin 12.9 g/dL (12.0-15.0); Immature Granulocyte Absolute 0.02 K/mm3 (0.00-0.031); Immature Granulocyte Percent A 0.3 % (0-0.5); Lymphocytes Absolute Auto 1.57 K/mm3 (0.9-3.2); Lymphocytes Percent Auto 23.1 % (18.3-44.2); Mean Corpuscular HGB Conc 32.9 g/dl (32-36); Mean Corpuscular Hemoglobin 33.6 pg (26-34); Mean Corpuscular Volume 102.1 fl (80-100); Mean Platelet Volume 9.4 fl (7.4-10.4); Monocytes Absolute Auto 0.6 K/mm3 (0.1-0.6); Neutrophils Absolute Auto 4.4 K/mm3 (1.3-6.7); Neutrophils Percent Auto 64.5 % (45.5-73.1); Platelet Count Result 274 k/mm3 (150-375); Red Blood Count 3.84 M/mm3 (4.2-5.4); Red Cell Distribution Width 12.6 % (11.5-14.5); White Blood Count 6.8 K/mm3 (4.5-10.0)
[2023-01-28 11:11] LABS: Cholesterol 280 mg/dL (0-200); HDL Direct 85 mg/dL; Triglycerides 181 mg/dL (<150)
[2023-01-28 11:22] LABS: LDL Cholesterol Direct 146 mg/dL
[2023-01-28 11:35] LABS: Vitamin D 25 Hydroxy 44.5 ng/mL
== END 2023-01-28 10:10 | disposition home or self-care (01) ==
PROVIDERS: PCP Family Medicine; Referring Provider Internal Medicine Medical Oncology; Visit Provider Family Medicine
DX: E78.2 Mixed hyperlipidemia (principal); E55.9 Vitamin D deficiency, unspecified; C50.412 Malignant neoplasm of upper-outer quadrant of left female breast; Z17.0 Estrogen receptor positive status [ER+]
CPT/HCPCS: 36415; 80061; 82306; 82607; 85025

== ENCOUNTER 2023-04-11 07:42 | Day surgery (SDC) | payer MEDICARE, SELFPAY ==
[2023-02-10 09:16] VITALS: BMI 27.6
[2023-03-29 08:51] VITALS: BMI 58.6
[2023-04-11 08:43] VITALS: BP 157/75; PULSE 61; RESP 16; TEMP 36.4; O2SAT 100
[2023-04-11] MEDS: LACTATED RINGERS 1,000 ML 150 ML IV CONT (08:55)
--- NOTE | 2023-04-11 09:00 | PM.HPGS ---
History of Present Illness History of Present Illness Consent: Risks, benefits, and alternatives have been discussed and questions answered. Patient agrees to proceed with procedure. Chief complaint: positive cologuard test Narrative: Kayley Jaimes is a 72 year old female Presents for screening colonoscopy. Patient recently found to have positive screening Cologuard test. Patient denies abdominal pain. She has had no bleeding. Family history noncontributory. Review of Systems Review of Systems: For review of systems noncontributory. [facility] Past Medical History Medical History (Updated 04/11/23 @ 09:02 by Edgar Dobson MD) Abnormal heart rhythm h/o ST; takes Metoprolol Age-related osteoporosis without current pathological fracture Anemia Arthritis Breast cancer Degenerative joint disease of right hip Dizziness Ex-smoker FH: heart disease H/O: gout Hypertension Pain of right hip Psoriasis Right knee pain Seasonal allergies Skin cancer TIA (transient ischemic attack) had left sided numbness, last a short period; 3 years ago; none since then; Trochanteric bursitis, right hip Vision abnormalities Vitamin D deficiency Surgical History Surgical History (Updated 11/19/22 @ 09:51 by Erendira Belle [facility]) History of lumpectomy Family History Family History Mother Patient's mother is Father Patient's father is ESRD (end stage renal disease) Other Arthritis Hypertension Social History Social History (Updated 11/19/22 @ 09:39 by Erendira Belle [facility]) Social History: Patient drinks about 2 glasses of wine a day. She quit smoking about 3 months ago and prior to that she was smoking 1 pack per day. She does not do drugs or smoke marijuana. She was working up until the pandemic and now is retired. She would like to be a DNR. Her , Espinoza, is her POA Smoking packs per day: 1 Smoking cigarettes per day: 20.0 Years smoked: 50 Smoking pack-years: 50.00 Smoking status: Former smoker Tobacco type: cigarettes Second hand tobacco smoke exposure: No Smoking end date: 06/30/20 Alcohol intake: current Drinks per week: 14 Alcohol use details: 2 glasses of wine/day Substance use: never Substance use type: does not use Lack of Transportation: No Lack of Food: Never True Current Housing: I Have Housing Concerned About Future Housing: No Difficulty Paying Gas/Electric Bills: No Difficulty Paying for Meds: No Currently Unemployed: No Education: Associate Degree Difficulty w/ Childcare or Family Care: No Living arrangements: with family Additional living arrangements comments: PO Occupation/Education: retired Gender identity (if verbalized by the patient): Female Sexual Orientation (if Verbalized by the Patient): Straight or Heterosexual Spiritual care concerns: No Agree to blood products: Yes Meds Home Medications and Allergies Home Medications Medication Instructions Recorded Confirmed Type triamcinolone acetonide 0.1 % 1 applic topical BID PRN Itching 09/18/20 03/29/23 History topical cream clobetasol 0.05 % topical cream 1 applic topical DAILY #45 grams 11/10/21 03/29/23 Rx metoprolol succinate 50 mg 50 mg PO DAILY #90 tabs 05/21/22 03/29/23 Rx tablet,extended release 24 hr aspirin 81 mg tablet,delayed 81 mg PO DAILY 11/19/22 03/29/23 History release cholecalciferol (vitamin D3) 125 125 mcg PO DAILY 11/19/22 03/29/23 History mcg (5,000 unit) capsule losartan 25 mg tablet 25 mg PO DAILY #90 tabs 02/09/23 03/29/23 Rx Eye-Mario Extra + Lutein 1 tablet PO DAILY 03/29/23 03/29/23 History Allergies Allergy/AdvReac Type Severity Reaction Status Date / Time codeine AdvReac Unknown AGITATION/GENERAL Verified 04/11/23 08:41 ITCHING Vital Signs Vital Signs - 24 hr 04/11/23 08:43 Temperature 97.6 F
--- NOTE | 2023-04-11 09:10 | WPDANESEPPF ---
Anes - Initial Pre Proc Eval Procedure: Operation Date: 04/11/23 10:00 Proposed Procedures p Colonoscopy - Edgar Dobson MD Date/Time: 04/11/23 09:10 Surgeon: Edgar Dobson MD Pre Op Diagnosis: positive cologuard test Patient Data Age: 72 Gender: F Height: 1.63 m Weight: 72.3 kg Last Vital Signs Temp 36.4 C 04/11/23 08:43 Pulse 61 04/11/23 08:43 Resp 16 04/11/23 08:43 BP 157/75 H 04/11/23 08:43 Pulse Ox 100 04/11/23 08:43 O2 Del Method Room Air 04/11/23 08:43 Allergies Allergy/AdvReac Type Severity Reaction Status Date / Time codeine AdvReac Unknown AGITATION/GENERAL Verified 04/11/23 08:41 ITCHING Home Medications Medication Instructions Recorded Confirmed Type triamcinolone acetonide 0.1 % 1 applic topical BID PRN Itching 09/18/20 03/29/23 History topical cream clobetasol 0.05 % topical cream 1 applic topical DAILY #45 grams 11/10/21 03/29/23 Rx metoprolol succinate 50 mg 50 mg PO DAILY #90 tabs 05/21/22 03/29/23 Rx tablet,extended release 24 hr aspirin 81 mg tablet,delayed 81 mg PO DAILY 11/19/22 03/29/23 History release cholecalciferol (vitamin D3) 125 125 mcg PO DAILY 11/19/22 03/29/23 History mcg (5,000 unit) capsule losartan 25 mg tablet 25 mg PO DAILY #90 tabs 02/09/23 03/29/23 Rx Eye-Mario Extra + Lutein 1 tablet PO DAILY 03/29/23 03/29/23 History Patient hx anesthesia problems: none Family hx anesthesia problems: none Results Review: All pre-operative results and documents have been reviewed as part of the pre-operative evaluation. [facility] Past Medical History Medical History Abnormal heart rhythm h/o ST; takes Metoprolol Age-related osteoporosis without current pathological fracture Anemia Arthritis Breast cancer Degenerative joint disease of right hip Dizziness Ex-smoker FH: heart disease H/O: gout Hypertension Pain of right hip Psoriasis Right knee pain Seasonal allergies Skin cancer TIA (transient ischemic attack) had left sided numbness, last a short period; 3 years ago; none since then; Trochanteric bursitis, right hip Vision abnormalities Vitamin D deficiency Surgical History Surgical History (Updated 11/19/22 @ 09:51 by Erendira Belle [facility]) History of lumpectomy Family History Family History Mother Patient's mother is Father Patient's father is ESRD (end stage renal disease) Other Arthritis Hypertension Social History Social History Social History: Patient drinks about 2 glasses of wine a day. She quit smoking about 3 months ago and prior to that she was smoking 1 pack per day. She does not do drugs or smoke marijuana. She was working up until the pandemic and now is retired. She would like to be a DNR. Her , Espinoza, is her POA Smoking packs per day: 1 Smoking cigarettes per day: 20.0 Years smoked: 50 Smoking pack-years: 50.00 Smoking status: Former smoker Tobacco type: cigarettes Second hand tobacco smoke exposure: No Smoking end date: 06/30/20 Alcohol intake: current Drinks per week: 14 Alcohol use details: 2 glasses of wine/day Substance use: never Substance use type: does not use Lack of Transportation: No Lack of Food: Never True Current Housing: I Have Housing Concerned About Future Housing: No Difficulty Paying Gas/Electric Bills: No Difficulty Paying for Meds: No Currently Unemployed: No Education: Associate Degree Difficulty w/ Childcare or Family Care: No Living arrangements: with family Additional living arrangements comments: PO Occupation/Education: retired Gender identity (if verbalized by the patient): Female Sexual Orientation (if Verbalized by the Patient): Straight or Heterosexual Spiritual care concerns:
[2023-04-11 09:42] VITALS: BP 114/62; PULSE 68; RESP 18; O2SAT 95
[2023-04-11 09:52] VITALS: BP 123/69; PULSE 70; RESP 18; O2SAT 98
--- NOTE | 2023-04-11 10:01 | WPDANESPN ---
Anes - Prog Note Post-Op Date/Time: 04/11/23 10:01 Cardiovascular status: normal Respiratory status: normal Airway patency: baseline Mental status: baseline Post-Op hydration status: normal Vital Signs: Last Vital Signs Temp 36.4 C 04/11/23 08:43 Pulse 70 04/11/23 09:52 Resp 18 04/11/23 09:52 BP 123/69 04/11/23 09:52 Pulse Ox 98 04/11/23 09:52 O2 Del Method Room Air 04/11/23 09:52 Pain Score (VAS): 0/10 I/O: Intake & Output 04/10/23 04/11/23 04/11/23 23:59 07:59 15:59 Intake Total 500 Balance 500 Patient Feedback: Patient satisfied with anesthetic care.
[2023-04-11 10:02] VITALS: BP 144/63; PULSE 72; RESP 20; O2SAT 98
== END 2023-04-11 10:10 | disposition home or self-care (01) ==
PROVIDERS: PCP Family Medicine; Visit Provider Internal Medicine Gastroenterology
PROC: 0DJD8ZZ Inspection of Lower Intestinal Tract, Via Natural or Artificial Opening Endoscopic (ICD-10-PCS; CPT 45378; principal; 2023-04-11 10:00)
DX: R19.5 Other fecal abnormalities (principal); K64.8 Other hemorrhoids
CPT/HCPCS: 45378

== ENCOUNTER 2023-06-29 09:56 | Outpatient (CLI) | payer MEDICARE, SELFPAY ==
[2023-06-29 10:25] LABS: Basophils Absolute Auto 0.1 K/mm3 (0.0-0.1); Basophils Percent Auto 1.1 % (0.2-1.2); Eosinophils Absolute Auto 0.1 K/mm3 (0-0.3); Eosinophils Percent Auto 2.2 % (0-4.4); Hematocrit 45.3 % (37.0-47.0); Hemoglobin 14.7 g/dL (12.0-15.0); Immature Granulocyte Absolute 0.02 K/mm3 (0.00-0.031); Immature Granulocyte Percent A 0.3 % (0-0.5); Lymphocytes Absolute Auto 1.86 K/mm3 (0.9-3.2); Mean Corpuscular HGB Conc 32.5 g/dl (32-36); Mean Corpuscular Volume 101.8 fl (80-100); Mean Platelet Volume 9.7 fl (7.4-10.4); Monocytes Absolute Auto 0.6 K/mm3 (0.1-0.6); Monocytes Percent Auto 9.5 % (2.6-8.5); Neutrophils Absolute Auto 3.7 K/mm3 (1.3-6.7); Neutrophils Percent Auto 57.9 % (45.5-73.1); Platelet Count Result 289 k/mm3 (150-375); Red Blood Count 4.45 M/mm3 (4.2-5.4); Red Cell Distribution Width 12.3 % (11.5-14.5); White Blood Count 6.4 K/mm3 (4.5-10.0)
[2023-06-29 10:45] LABS: Alanine Aminotransferase 22 U/L (6-35); Albumin Level 4.5 g/dL (3.5-5.1); Alkaline Phosphatase 58 U/L (38-126); Anion Gap 7 mmol/L (8-16); Aspartate Amino Transferase 33 U/L (14-36); Bilirubin,Total 1.1 mg/dL (0.2-1.3); Blood Urea Nitrogen 19 mg/dL (7-17); Calcium 9.4 mg/dL (8.4-10.2); Carbon Dioxide 28 mmol/L (22-30); Chloride 101 mmol/L (98-107); Cholesterol 263 mg/dL (0-200); Estimated Glomerular Filt Rate > 60; Glucose 98 mg/dL (65-110); HDL Direct 93 mg/dL; Potassium 4.8 mmol/L (3.4-5.0); Sodium 136 mmol/L (137-145); Triglycerides 195 mg/dL (<150)
[2023-06-29 10:56] LABS: LDL Cholesterol Direct 134 mg/dL
== END 2023-06-29 09:57 | disposition home or self-care (01) ==
PROVIDERS: PCP Family Medicine; Referring Provider Internal Medicine Medical Oncology; Visit Provider Family Medicine
DX: C50.412 Malignant neoplasm of upper-outer quadrant of left female breast (principal); Z17.0 Estrogen receptor positive status [ER+]; E78.2 Mixed hyperlipidemia; E11.9 Type 2 diabetes mellitus without complications; D75.89 Other specified diseases of blood and blood-forming organs
CPT/HCPCS: 36415; 80053; 80061; 82607; 85025

== ENCOUNTER 2023-10-19 08:38 | Outpatient (CLI) | payer MEDICARE, SELFPAY ==
--- NOTE | ~2023-10-19 | US_ITS ---
EXAMINATION: US venous doppler LE RT DATE: 10/19/2023 09:19 INDICATION: Right lower limb edema. TECHNIQUE: Grayscale ultrasound images without and with compression and Doppler ultrasound images of the right lower extremity veins were obtained. COMPARISON: None. FINDINGS: The visualized portions of right common femoral vein, profunda (deep) femoral vein, femoral vein, pop liteal vein, peroneal veins, posterior tibial veins, and greater saphenous vein outflow are patent. IMPRESSION: 1. No deep venous thrombosis. Reviewed, dictated and finalized at location A.
== END 2023-10-19 08:39 | disposition home or self-care (01) ==
LOC: ANHIMG 08:41
PROVIDERS: PCP Family Medicine; Visit Provider Orthopaedic Surgery
DX: R60.0 Localized edema (principal); M79.604 Pain in right leg
CPT/HCPCS: 93971

== ENCOUNTER 2023-11-16 09:46 | Outpatient (CLI) | payer MEDICARE, SELFPAY ==
[2023-11-16 10:16] LABS: Basophils Absolute Auto 0.1 K/mm3 (0.0-0.1); Basophils Percent Auto 0.9 % (0.2-1.2); Eosinophils Absolute Auto 0.2 K/mm3 (0-0.3); Eosinophils Percent Auto 2.8 % (0-4.4); Hematocrit 42.4 % (37.0-47.0); Hemoglobin 14.4 g/dL (12.0-15.0); Immature Granulocyte Absolute 0.01 K/mm3 (0.00-0.031); Immature Granulocyte Percent A 0.2 % (0-0.5); Lymphocytes Absolute Auto 1.72 K/mm3 (0.9-3.2); Lymphocytes Percent Auto 26.9 % (18.3-44.2); Mean Corpuscular Hemoglobin 34.2 pg (26-34); Mean Corpuscular Volume 100.7 fl (80-100); Mean Platelet Volume 9.6 fl (7.4-10.4); Monocytes Absolute Auto 0.8 K/mm3 (0.1-0.6); Monocytes Percent Auto 12.5 % (2.6-8.5); Neutrophils Absolute Auto 3.6 K/mm3 (1.3-6.7); Neutrophils Percent Auto 56.7 % (45.5-73.1); Platelet Count Result 282 k/mm3 (150-375); Red Blood Count 4.21 M/mm3 (4.2-5.4); Red Cell Distribution Width 12.6 % (11.5-14.5); White Blood Count 6.4 K/mm3 (4.5-10.0)
[2023-11-16 10:28] LABS: Alanine Aminotransferase 18 U/L (6-35); Albumin Level 4.6 g/dL (3.5-5.1); Alkaline Phosphatase 72 U/L (38-126); Anion Gap 6 mmol/L (4-12); Aspartate Amino Transferase 26 U/L (14-36); Bilirubin,Total 0.9 mg/dL (0.2-1.3); Blood Urea Nitrogen 22 mg/dL (7-17); Carbon Dioxide 31 mmol/L (22-30); Chloride 98 mmol/L (98-107); Cholesterol 244 mg/dL (0-200); Creatine Kinase 65 U/L (30-135); Estimated Glomerular Filt Rate > 60; Glucose 94 mg/dL (65-110); HDL Direct 85 mg/dL; Magnesium 1.8 mg/dL (1.6-2.3); Potassium 4.9 mmol/L (3.4-5.0); Sodium 135 mmol/L (137-145); Triglycerides 133 mg/dL (<150)
[2023-11-16 10:29] LABS: Rheumatoid Factor < 12.0 IU/ML (<12)
[2023-11-16 10:39] LABS: LDL Cholesterol Direct 137 mg/dL
[2023-11-16 11:06] LABS: Erythrocyte Sedimentation Rate 14 mm/hr (0-20)
[2023-11-16 11:13] LABS: Vitamin D 25 Hydroxy 45.8 ng/mL
[2023-11-16 11:27] LABS: Thyroid Stimulating Hormone Reflex 0.509 uIU/mL (0.465-4.68)
[2023-11-17 14:14] LABS: Anti Cyclic Citrullinated Pept <16 UNITS
== END 2023-11-16 09:47 | disposition home or self-care (01) ==
LOC: ANHLAB 09:51
PROVIDERS: PCP Family Medicine; Visit Provider Family Medicine
DX: E55.9 Vitamin D deficiency, unspecified (principal); M79.10 Myalgia, unspecified site; R53.83 Other fatigue; E78.2 Mixed hyperlipidemia; I10 Essential (primary) hypertension; R20.2 Paresthesia of skin
CPT/HCPCS: 36415; 80053; 80061; 82306; 82550; 82607; 83735; 84443; 85025; 85652; 86038; 86039; 86200; 86430

== ENCOUNTER 2024-01-06 10:01 | Outpatient (CLI) | payer MEDICARE, SELFPAY ==
[2024-01-06 10:30] LABS: Basophils Absolute Auto 0.1 K/mm3 (0.0-0.1); Basophils Percent Auto 0.9 % (0.2-1.2); Eosinophils Absolute Auto 0.2 K/mm3 (0-0.3); Eosinophils Percent Auto 2.2 % (0-4.4); Hematocrit 43.4 % (37.0-47.0); Hemoglobin 14.7 g/dL (12.0-15.0); Immature Granulocyte Absolute 0.02 K/mm3 (0.00-0.031); Immature Granulocyte Percent A 0.3 % (0-0.5); Lymphocytes Absolute Auto 1.67 K/mm3 (0.9-3.2); Lymphocytes Percent Auto 24.8 % (18.3-44.2); Mean Corpuscular HGB Conc 33.9 g/dl (32-36); Mean Corpuscular Hemoglobin 33.7 pg (26-34); Mean Corpuscular Volume 99.5 fl (80-100); Mean Platelet Volume 9.5 fl (7.4-10.4); Monocytes Absolute Auto 0.7 K/mm3 (0.1-0.6); Monocytes Percent Auto 10.1 % (2.6-8.5); Neutrophils Absolute Auto 4.2 K/mm3 (1.3-6.7); Neutrophils Percent Auto 61.7 % (45.5-73.1); Platelet Count Result 305 k/mm3 (150-375); Red Blood Count 4.36 M/mm3 (4.2-5.4); Red Cell Distribution Width 12.3 % (11.5-14.5); White Blood Count 6.7 K/mm3 (4.5-10.0)
[2024-01-06 10:42] LABS: Alanine Aminotransferase 18 U/L (6-35); Albumin Level 4.5 g/dL (3.5-5.1); Alkaline Phosphatase 71 U/L (38-126); Anion Gap 8 mmol/L (4-12); Aspartate Amino Transferase 27 U/L (14-36); Bilirubin,Total 0.9 mg/dL (0.2-1.3); Blood Urea Nitrogen 24 mg/dL (7-17); Calcium 9.4 mg/dL (8.4-10.2); Carbon Dioxide 29 mmol/L (22-30); Chloride 98 mmol/L (98-107); Estimated Glomerular Filt Rate 48; Glucose 99 mg/dL (65-110); Potassium 4.8 mmol/L (3.4-5.0); Sodium 135 mmol/L (137-145)
== END 2024-01-06 10:02 | disposition home or self-care (01) ==
PROVIDERS: PCP Family Medicine; Visit Provider Internal Medicine Medical Oncology
DX: C50.412 Malignant neoplasm of upper-outer quadrant of left female breast (principal); Z17.0 Estrogen receptor positive status [ER+]
CPT/HCPCS: 36415; 80053; 85025

== ENCOUNTER 2024-07-06 11:14 | Outpatient (CLI) | payer MEDICARE, SELFPAY ==
--- OUTSIDE RECORDS SUMMARY | 2024-07-06 12:15 | XMS_ITS | Clinical Summary ---
Author Organization [facility] [place] [address] Address [address] [place] [address] Care Team Providers Care Oven Heater Name Role Phone Rashmi Vela MD Primary Care Provider [phone] Rj Baldwin DO Unavailable [phone] Allergies Active Allergy Reactions Criticality Noted Date Comments Pradip Marcum 01/08/2022 Medications metoprolol XL (TOPROL-XL) 25 mg extended release tablet Take 1 tablet (25 mg total) by mouth daily 1 Active aspirin 81 mg enteric coated tablet Take 1 tablet (81 mg total) by mouth daily Active nb-jm-kqwrt-Q10 -lycopen-lutein 800 mcg-1 mg- 500 mcg-500 mcg capsule Take 25 mg by mouth once Active triamcinolone acetonide 0.025 % lotion Apply topically Active losartan (COZAAR) 25 mg tablet Take 1 tablet (25 mg total) by mouth daily Active cholecalciferol 25 mcg (1,000 unit) tablet Take 1 tablet (1,000 Units total) by mouth daily Active letrozole (FEMARA) 2.5 mg tablet TAKE 1 TABLET (2.5 MG TOTAL) BY MOUTH EVERY OTHER DAY 45 tablet 1 4 08/26/19 25 Active Active Problems Problem Noted Date Diagnosed Date Malignant neoplasm of upper- outer quadrant of left breast in female, estrogen receptor positive 01/22/2022 Cancer Staging:Clinical stage from 01/26/2022:Stage IA(cT1c, cN0, cM0, G2, ER+, MO+, HER2-) - Signed by Rj Baldwin DO on 01/26/2022 Preoperative cardiovascular examination 08/29/19 21 Tachycardia 08/28/2020 Lipid screening 08/28/2020 Immunizations Immunization Administration Dates Next Due Pneumococcal Conjugate PCV 13 12/29/2016 Pneumococcal Polysaccharide PPV23 11/17/2017 Surgical History Surgery Date Site/Laterality Comments BREAST BIOPSY 01/08/2022 Left TOTAL HIP ARTHROPLASTY Right BREAST LUMPECTOMY left breast/2021 Medical History Medical History Date Comments Skin disorder Rapid heart rate Allergic rhinitis Arthritis Eczema Breast lump Ringing in ear Hay fever History of dental problems Hemorrhoids Heart palpitations Short of breath on exertion Hypertension PONV (postoperative nausea and vomiting) Motion sickness Breast cancer (HCC) left breast Family History Medical History Relation Name Comments Kidney failure Father No Known Problems Maternal Grandfather Breast cancer Maternal Grandmother Lung cancer Paternal Grandfather Coronary artery disease Paternal Grandmother Breast cancer Sister sister Stroke Sister sister Relation Name Status Comments Father (Age 86) Maternal Grandfather Maternal Grandmother Mother (Age 89) Paternal Grandfather Paternal Grandmother Sister sister Alive Social History Tobacco Use Types Packs/Day Years Used Date Smoking Tobacco: Former Cigarettes 1 50 Smokeless Tobacco: Never Tobacco Cessation:Counseling Given: Not Answered AUDIT-C Answer Date Recorded Q1: How often do you have a drink containing alcohol? 4 or more times a week 02/12/2022 Q2: How many drinks containi ng alcohol do you have on a typical day when you are drinking? 10 or more Q3: How often do you have si x or more drinks on one occasion? Weekly 02/12/2022 Comments No Sex and Gender Information Value Date Recorded Sex Assigned at Not on file Legal Sex Female 10:28 AM PSYCHOLOGICAL SCIENCE PROFESSOR Gender Identity Not on file Sexual Orientation Not on file Occupation Industry Job Start Date Job End Date Accounting Not on file Not on file Not on file Obstetrics History Para Term AB IAB SAB Ectopic Multiple Livin g Live Births 2 2 2 Date Outcome GA Total Labor Labor/2nd/3rd Weight Sex Type Anes PTL Jazmyn A1 A5 Name Clin Term Term Last Filed Vital Signs Vital Sign Reading Time Taken Comments Blood Pressure 154/85 01/13/2024 9:37 AM CDT Pulse 59 01/13/2024 9:37 AM CDT Temperature 36.8 C (98.2 F) 01/13/2024 9:37 AM CDT Respiratory Rate 18 01/13/2024 9:37 AM CDT Oxygen Saturation 97% 01/13/2024 9:37 AM CDT Inhaled Oxygen Concentration - - Weight 72.2 kg (159 lb 2.8 oz) 01/13/2024 9:37 A M CDT Height 162.6 cm (5' 4 ) 07/08/2023 9:35 AM PSYCHOLOGICAL SCIENCE PROFESSOR Body Mass Index 27.32 07/08/2023 9:35 AM PSYCHOLOGICAL SCIENCE PROFESSOR Plan of Treatment Health Maintenance Due Date Last Done Comments Colon Cancer Screening-Colonoscopy 1950 Depression Screening 1950 Hepatitis C Screening 1950 Osteoporosis Screening-Bone Density Scan 1948 DTaP/Tdap/Td Vaccine (1 - Tdap) 08/26/1959 Hepatitis B Screening 1966 Zoster Vaccine (1 of 2) 08/26/1967 Well Visit 65+ 2013 Fall Risk Assessment 02/22/2023 02/22/2022 Covid-19 Vaccine ( - 2023-2 5 season) 2024 04/14/2021, 07/26/2020, 07/03/2020 Influenza Vaccine (#1) 2024 Pneumococcal vaccine 65+ Completed 11/17/2017, 12/02 Breast Cancer Screening-Mammogram Discontinued 024 Medical Devices Implanted Type Area Interventional Sale Consultant Device Identifier Shelf Expiration Date Model / Serial / Lot Hip Replacement Right: Hip [employer] [place] 20ga 5cm Reposition J Curve Wire [employer] Stabilizer [id number] - [id number] Implanted:Qty: 1 on 02/22/2022 at [facility] Left: Breast [employer] [id number] 01/08/2027 [id number] / / [id number] Procedures Procedure Name Priority Date/Time Associated Diagnosis Comments DIAGNOSTIC MAMMOGRAM BILATERAL W PUMA Schedule Routine, Read Routine (OP Routine) 11/24/2023 9:46 AM CDT Malignant neoplasm of upper-outer quadrant of left female breast, unspecified estrogen receptor status (HCC) from Last 3 Months or Most Recently Relevant to Health Maintenance Results * Diagnostic Mammogram Bilateral W Puma (11/24/2023 9:46 AM CDT) Anatomical Region Laterality Modality Breast Bilateral Mammography 11/24/2023 9:50 AM CDT Narrative 11/24/2023 9:51 AM CDT EXAM DESCRIPTION: DIAGNOSTIC MAMMOGRAM BILATERAL W PUMA REASON FOR STUDY: 73-year-old woman with personal history of left breast cancer status post breast conservation therapy in January 2022. She comes in today for follow-up of the left breast, and routine screening of the right breast. COMPARISON: 11/22/2022, 02/22/2022, 01/08/2022, 11/19/2021, 10/21/2021. FINDINGS: CC and MLO digital breast tomosynthesis of both breasts with C view was performed. FINDINGS: DENSITY: There are scattered areas of fibroglandular density. There are stable postoperative changes of breast conservation therapy in the upper outer left breast middle depth. No new suspicious findings identified in either breast on mammogram. IMPRESSION: 1. Stable postoperative changes of breast conservation therapy in the left breast. No new suspicious findings identified in either breast on mammogram. Continued monthly breast self-examination and clinical follow-up is recommended, and imaging follow-up with bilateral diagnostic mammogram in 12 months per [facility] protocol. BIRADS: 2 - Benign The patient was notified of the results and recommendations at the time of the examination. THIS IS AN ELECTRONICALLY VERIFIED FINAL REPORT 11/24/2023 9:51 AM - Electronically signed by Alfonso Barton M.D. RL: KIRSTY Report ID: [id number] Reading Location: [facility] Aris Simon MD IMG MAMMO PROCEDURES Final Res ult from Last 3 Months or Most Recently Relevant to Health Maintenance Insurance MED[employer]ARE [employer]IONS Member Subscriber Plan / Payer (Ef fective 2020-Present) Name:Kayley Jaimes Relation to Subscriber:Self Name:Kayley Jaimes Payer ID:[id number] (NAIC) Type:UHC MEDICARE Address: [place] [id number] MEDICARE SOLUTIONS Member Subscriber Plan / Payer (Ef fective 2021-Present) Name:Kayley Jaimes Relation to Subscriber:Self Name:Kayley Jaimes Payer ID:[id number] (NAIC) Type:UHC MEDICARE Address: [place] [id number] MEDICARE SOLUTIONS Advance Directives For more information, please contact: [phone] Documents on File Type Date Recorded Patient Supervisor Enrobing Expl anation ADVANCE DIRECTIVE 02/23/2022 1:28 PM Laurita r of Olive Grower-Medical * Full Code (Latest Code Status on File) Date Activated Date Inactivated Comments 02/22/2022 2:14 PM 02/22/2022 8:17 PM Care Teams Oven Heater Relationship Specialty Start Date End Date Rashmi Vela MD PCP - General Family Medicine 03/30/18 Rj Baldwin DO [address] [place] [address] MEDICAL ONCOLOGY, [address] [address] Medical Oncologist/Rotating Equipment Engineer Hematology and Oncology 04/07/22
--- OUTSIDE RECORDS SUMMARY | 2024-07-06 12:15 | XMS_ITS | Referral Summary ---
Author Organization [facility] [place] [address] Address [address] [place] [address] Care Team Providers Care Senior Data Integration Developer Name Role Phone Rashmi Vela MD Primary Care Provider [phone] Rj Baldwin DO Unavailable [phone] Allergies Active Allergy Reactions Criticality Noted Date Comments Jianine Robin Marcum 01/08/2022 Medications metoprolol XL (TOPROL-XL) 25 mg extended release tablet Take 1 tablet (25 mg total) by mouth daily 1 Active aspirin 81 mg enteric coated tablet Take 1 tablet (81 mg total) by mouth daily Active ba-za-[id number]-Q10 -lycopen-lutein 800 mcg-1 mg- 500 mcg-500 mcg [...] from 01/26/2022:Stage IA(cT1c, cN0, cM0, G2, ER+, CT+, HER2-) - Signed by Rj Baldwin DO on 01/26/2022 Preoperative cardiovascular examination 08/29/19 21 Tachycardia 08/28/2020 Lipid screening 08/28/2020 Immunizations Immunization Administration Dates Next Due Pneumococcal Conjugate PCV 13 12/29/2016 Pneumococcal Polysaccharide PPV23 11/17/2017 Social History Tobacco Use Types Packs/Day Years [...] on file Legal Sex Female 10:28 AM AIRBORNE OPERATIONS MANAGER Gender Identity Not on file Sexual Orientation Not on file Occupation Industry Job Start Date Job End Date Accounting Not on file Not on file Not on file Last Filed Vital Signs Vital Sign Reading [...] cm (5' 4 ) 07/08/2023 9:35 AM AIRBORNE OPERATIONS MANAGER Body Mass Index 27.32 07/08/2023 9:35 AM AIRBORNE OPERATIONS MANAGER Plan of Treatment Not on file Medical Devices Implanted Type Area Clerk Guide Device Identifier Shelf Expiration Date Model / Serial / Lot Hip Replacement Right: Hip [employer] [place] 20ga 5cm Reposition J Curve Wire [employer] [place] Stabilizer [id number] - [id number] Implanted:Qty: 1 on 02/22/2022 at [facility] Left: Breast [employer] [id number] 01/08/2027 [id number] / / [id number] Procedures Procedure Name Priority Date/Time Associated Diagnosis [...] bilateral diagnostic mammogram in 12 months per [facility] protocol. BIRADS: 2 - Benign The patient was notified of the results and recommendations at the time of the examination. THIS IS AN ELECTRONICALLY VERIFIED FINAL REPORT 11/24/2023 9:51 AM - Electronically signed by Alfonso Barton M.D. RL: KIRSTY Report ID: [id number] Reading Location: [facility] Aris Simon MD IMG MAMMO PROCEDURES Final Res ult from Last 3 Months or Most Recently Relevant to Health Maintenance Insurance MEDICARE SOLUTIONS [facility] Address: [place] [id number] MEDICARE SOLUTIONS [facility] Address: [place] [id number] [place] [id number] MEDICARE SOLUTIONS [facility] Address: [address] [place], [place] [phone] Advance Directives For more information, please contact: [phone] Documents on File Type Date Recorded Patient Relief Charge Nurse Expl anation ADVANCE DIRECTIVE 02/23/2022 1:28 PM Laurita r of Skin Therapist-Medical * Full Code (Latest Code Status on File) Date Activated Date Inactivated Comments 02/22/2022 2:14 PM 02/22/2022 8:17 PM Care Teams Senior Data Integration Developer Relationship Specialty Start Date End Date Rashmi Vela MD PCP - General Family Medicine 03/30/18 Rj Baldwin DO [address] [place] [address] MEDICAL ONCOLOGY, [address] [address] Medical Oncologist/Tug Captain Hematology and Oncology 04/07/22
[2024-07-06 12:16] LABS: Basophils Absolute Auto 0.1 K/mm3 (0.0-0.1); Basophils Percent Auto 0.8 % (0.2-1.2); Eosinophils Absolute Auto 0.1 K/mm3 (0-0.3); Eosinophils Percent Auto 1.8 % (0-4.4); Hematocrit 41.3 % (37.0-47.0); Hemoglobin 14.1 g/dL (12.0-15.0); Immature Granulocyte Absolute 0.03 K/mm3 (0.00-0.031); Immature Granulocyte Percent A 0.4 % (0-0.5); Lymphocytes Absolute Auto 1.92 K/mm3 (0.9-3.2); Lymphocytes Percent Auto 26.7 % (18.3-44.2); Mean Corpuscular HGB Conc 34.1 g/dl (32-36); Mean Corpuscular Hemoglobin 34.6 pg (26-34); Mean Corpuscular Volume 101.2 fl (80-100); Mean Platelet Volume 9.9 fl (7.4-10.4); Monocytes Absolute Auto 0.7 K/mm3 (0.1-0.6); Monocytes Percent Auto 9.2 % (2.6-8.5); Neutrophils Absolute Auto 4.4 K/mm3 (1.3-6.7); Neutrophils Percent Auto 61.1 % (45.5-73.1); Platelet Count Result 306 k/mm3 (150-375); Red Blood Count 4.08 M/mm3 (4.2-5.4); Red Cell Distribution Width 12.2 % (11.5-14.5); White Blood Count 7.2 K/mm3 (4.5-10.0)
[2024-07-06 12:28] LABS: Hemoglobin A1C 5.1 % (<5.7)
[2024-07-06 12:30] LABS: Alanine Aminotransferase 21 U/L (6-35); Albumin Level 4.6 g/dL (3.5-5.1); Alkaline Phosphatase 78 U/L (38-126); Anion Gap 10 mmol/L (4-12); Aspartate Amino Transferase 26 U/L (14-36); Bilirubin,Total 0.9 mg/dL (0.2-1.3); Blood Urea Nitrogen 20 mg/dL (7-17); Calcium 9.8 mg/dL (8.4-10.2); Carbon Dioxide 29 mmol/L (22-30); Chloride 99 mmol/L (98-107); Cholesterol 244 mg/dL (0-200); Estimated Glomerular Filt Rate > 60; Glucose 104 mg/dL (65-110); HDL Direct 93 mg/dL; Potassium 5.1 mmol/L (3.4-5.0); Sodium 138 mmol/L (137-145); Triglycerides 145 mg/dL (<150)
[2024-07-06 12:44] LABS: LDL Cholesterol Direct 114 mg/dL
[2024-07-06 13:01] LABS: Thyroid Stimulating Hormone Reflex 0.446 uIU/mL (0.465-4.68)
[2024-07-06 15:12] LABS: Free T4 Free Thyroxine Reflex 1.32 ng/dL (0.78-2.19)
[2024-07-06 17:31] LABS: Total Triiodothyronine (T3) 1.07 NG/ML (0.97-1.69)
== END 2024-07-06 11:15 | disposition home or self-care (01) ==
LOC: ANHLAB 11:20
PROVIDERS: PCP Family Medicine; Visit Provider Family Medicine
DX: Z13.1 Encounter for screening for diabetes mellitus (principal); E78.2 Mixed hyperlipidemia; R53.83 Other fatigue; I10 Essential (primary) hypertension
CPT/HCPCS: 36415; 80053; 80061; 83036; 84439; 84443; 84480; 85025